=== PATIENT | female | born 1965 | race Caucasian/White ===

== ENCOUNTER 2023-08-04 10:29 | Outpatient (CLI) | payer OTHER ==
[2023-08-04 12:09] LABS: Hematocrit 39.3 % (34.9-44.5)
== END 2023-08-04 10:30 | disposition home or self-care (01) ==
LOC: CSHLAB 10:29
PROVIDERS: ATTEND Otolaryngology Otolaryngic Allergy
DX: Z01.818 Encounter for other preprocedural examination (principal); R59.1 Generalized enlarged lymph nodes; R05.3 Chronic cough
CPT/HCPCS: 85014; 93005; 93010

== ENCOUNTER 2023-08-09 06:06 | Day surgery (SDC) | payer OTHER ==
[2023-08-04 11:38] VITALS: BMI 27.6
[~2023-08-09 06:06] MED LIST: Dexmedetomidine 200 MCG/2 ML VIAL ONE
[2023-08-09] MEDS ORDERED: CEFAZOLIN 2 GM VIAL ONE (07:32)
[2023-08-09] MEDS ORDERED: Lidocaine 1% w/Epinephrine 1:100K 20 ML VIAL ONE (07:32)
[2023-08-09] MEDS ORDERED: fentaNYL 50 mcg/mL 1 mL Vial ONE (07:34)
[2023-08-09] MEDS ORDERED: Lidocaine 1% PF 5 ML VIAL ONE (07:34)
[2023-08-09] MEDS ORDERED: Dexamethasone 20 MG/5 ML VIAL ONE (07:34)
[2023-08-09] MEDS ORDERED: Ondansetron PF 4 MG/2 ML Vial ONE (07:34)
[2023-08-09] MEDS ORDERED: Midazolam HCl 2 mg/2 ml Vial ONE (07:34)
[2023-08-09] MEDS ORDERED: PROPOFOL 20 ML ONE (07:34)
[2023-08-09] MEDS ORDERED: Glycopyrrolate 0.2 MG/ML 5 ML SYRINGE ONE (07:35)
[2023-08-09] MEDS ORDERED: ePHEDrine Sulfate 50 MG/10 ML VIAL ONE (08:12)
[2023-08-09] MEDS ORDERED: HYDROcodone/Acetaminophen 5/325 mg Tablet ONE (09:41)
== END 2023-08-09 10:35 | disposition home or self-care (01) ==
LOC: CSHSDC 06:06
PROVIDERS: ATTEND Otolaryngology Otolaryngic Allergy
PROC: 07B20ZX Excision of Left Neck Lymphatic, Open Approach, Diagnostic (ICD-10-PCS; principal; 2023-08-09)
DX: C83.31 Diffuse large B-cell lymphoma, lymph nodes of head, face, and neck (principal); R59.0 Localized enlarged lymph nodes; E03.9 Hypothyroidism, unspecified; R05.3 Chronic cough; Z79.890 Hormone replacement therapy; Z88.8 Allergy status to other drugs, medicaments and biological substances
CPT/HCPCS: 88184; 88307; 88331; J1100; J2250; J2405; J2704; J3010